=== PATIENT | male | born 1950 | race Caucasian/White ===

== ENCOUNTER 2017-12-21 11:42 | Day surgery (SDC) | payer OTHER ==
[2017-12-21] MEDS ORDERED: NS 1,000 ML IV (12:45)
== END 2017-12-21 13:38 | disposition home or self-care (01) ==
LOC: M OPP 11:42
DX: Z12.11 Encounter for screening for malignant neoplasm of colon (principal); Z86.010 Personal history of colon polyps; K64.0 First degree hemorrhoids; K57.30 Diverticulosis of large intestine without perforation or abscess without bleeding; I10 Essential (primary) hypertension; E78.5 Hyperlipidemia, unspecified; E11.9 Type 2 diabetes mellitus without complications; K57.32 Diverticulitis of large intestine without perforation or abscess without bleeding; J45.909 Unspecified asthma, uncomplicated; J44.9 Chronic obstructive pulmonary disease, unspecified; R06.83 Snoring; Z85.46 Personal history of malignant neoplasm of prostate; Z88.8 Allergy status to other drugs, medicaments and biological substances; Z88.3 Allergy status to other anti-infective agents; Z91.013 Allergy to seafood; Z91.018 Allergy to other foods; Z79.82 Long term (current) use of aspirin; Z79.899 Other long term (current) drug therapy; Z79.84 Long term (current) use of oral hypoglycemic drugs; Z80.51 Family history of malignant neoplasm of kidney; Z87.891 Personal history of nicotine dependence
CPT/HCPCS: G0105

== ENCOUNTER 2018-07-23 10:11 | Emergency (ER) | payer MEDICARE, OTHER ==
[~2018-07-23] VITALS: Ht 152.4 cm; Wt 67.7 kg
[~2018-07-23 10:11] MED LIST: AMLO5TAB6 PO; ASPI1TAB PO; CINN500C9 PO; CRAN400T3 PO; FISH100049 PO; GEMF600T5 PO; LOSA100T50 PO; METF10004 PO; METF500T13 PO; NIAC250C13 PO; POME250C2 PO; TRIA37.53 PO; Triamterene/Hctz; VITA-110 PO; VITA400C7 PO; VITA500T PO; [UNRECOGNIZED DRUG - OTHER]; gemfibrozil
[2018-07-23 11:25] VITALS: BP 145/72
--- NOTE | 2018-07-23 11:54 | REP ---
SOFT TISSUE NECK, THREE VIEWS: HISTORY: Foreign body. The cervical spine is visualized from C1 to C7 in the lateral radiographs. There is no acute fracture or subluxation. The C3-4 through C6-7 intervertebral discs are decreased in height consistent with disc degeneration. Osteophytes are present on C3 through C7. Soft tissues of the neck are unremarkable. IMPRESSION: Degenerative change as described above. There is no radiopaque foreign body. Electronically Signed by Isaiah Bowles MD 07/23/2018 12:00 P
== END 2018-07-23 11:39 | disposition home or self-care (01) ==
LOC: M ED 10:11
DX: R09.89 Other specified symptoms and signs involving the circulatory and respiratory systems (principal); J44.9 Chronic obstructive pulmonary disease, unspecified; J45.909 Unspecified asthma, uncomplicated; I10 Essential (primary) hypertension; E11.9 Type 2 diabetes mellitus without complications; Z79.899 Other long term (current) drug therapy; Z79.84 Long term (current) use of oral hypoglycemic drugs; Z79.82 Long term (current) use of aspirin; Z88.8 Allergy status to other drugs, medicaments and biological substances; Z91.013 Allergy to seafood; Z91.018 Allergy to other foods

== ENCOUNTER 2023-11-23 07:46 | Day surgery (SDC) | payer OTHER ==
[~2023-11-23] VITALS: Ht 152.4 cm; Wt 68.5 kg
[~2023-11-23 07:46] MED LIST changes: +AMLO1TAB24 PO; -AMLO5TAB6 PO; -ASPI1TAB PO; +ASPI81TA26 PO; +CINN500C12 PO; +CRAN450T4 PO; +LOPI600T PO; +LOSA100T46 PO; -LOSA100T50 PO; +OMEG10002 PO; +QUER500C PO; +ROSU10TA61 PO; -TRIA37.53 PO; +TRIA37.577 PO; +VITA-243 PO; +VITA400T26 PO; -VITA500T PO; +ZINC100T3 PO; +[UNRECOGNIZED DRUG - CODE] PO; +propofoL 200 MG/20 ML VIAL As Ordered ONE; +propofoL 500 MG/50 ML VIAL As Ordered ONE
[2023-11-23] MEDS: NS 1,000 ML IV ONE (08:10)
[2023-11-23 09:25] VITALS: TEMP 97.7
[2023-11-23 09:45] VITALS: BP 118/68; O2SAT 95
== END 2023-11-23 09:58 | disposition home or self-care (01) ==
LOC: M OPP 07:46
PROVIDERS: ATTEND Internal Medicine Gastroenterology
DX: Z12.11 Encounter for screening for malignant neoplasm of colon (principal); D12.8 Benign neoplasm of rectum; K64.0 First degree hemorrhoids; K57.30 Diverticulosis of large intestine without perforation or abscess without bleeding; Z86.010 Personal history of colon polyps; I10 Essential (primary) hypertension; E11.9 Type 2 diabetes mellitus without complications; E78.00 Pure hypercholesterolemia, unspecified; J44.9 Chronic obstructive pulmonary disease, unspecified; Z85.46 Personal history of malignant neoplasm of prostate; Z90.49 Acquired absence of other specified parts of digestive tract; Z79.84 Long term (current) use of oral hypoglycemic drugs; Z79.899 Other long term (current) drug therapy; Z88.8 Allergy status to other drugs, medicaments and biological substances; Z91.013 Allergy to seafood; Z91.018 Allergy to other foods

== ENCOUNTER 2025-05-15 06:25 | Emergency (ER) | payer MEDICARE, OTHER ==
[~2025-05-15] VITALS: Ht 152.4 cm; Wt 67.6 kg
[~2025-05-15 06:25] MED LIST changes: -ROSU10TA61 PO; +ROSU10TA90 PO; -propofoL 200 MG/20 ML VIAL As Ordered ONE; -propofoL 500 MG/50 ML VIAL As Ordered ONE
[2025-05-15 06:29] VITALS: TEMP 97
[2025-05-15 07:00] LABS: BASO # 0.1 10^3/uL (0.0-0.2); BASO % 0.7 % (0.0-1.0); EOS # 0.4 10^3/uL (0.0-0.5); EOS % 5.7 % (0.0-3.0); LYMPH # 2.5 10^3/uL (1.5-5.0); LYMPH % 34.4 % (24.0-44.0); MONO # 0.5 10^3/uL (0.0-0.8); MONO % 6.8 % (2.0-8.0); NEUTROPHILS # 3.8 10^3/uL (1.5-8.5); NEUTROPHILS % 51.9 % (36.0-66.0); PLATELET COUNT, AUTOMATED 225 10^3/uL (150-450)
[2025-05-15 07:18] LABS: CK-MB VALUE MASS 3.1 NG/ML (<3.6)
[2025-05-15 07:21] LABS: ALT/SGPT 26 U/L (7.0-40); AST/SGOT 24 U/L (<34); CALCIUM LEVEL 9.5 MG/DL (8.3-10.6); CARBON DIOXIDE LEVEL 28 MMOL/L (20-31); CHLORIDE LEVEL 103 MMOL/L (98-107); CREATININE FOR GFR 0.83 MG/DL (0.70-1.30); GLOMERULAR FILTRATION RATE > 90.0 (>42); POTASSIUM SERUM 4.1 MMOL/L (3.5-5.1); SODIUM LEVEL 141 MMOL/L (136-145)
[2025-05-15 07:25] LABS: CPK CREATINE PHOSPHOKINASE 174 U/L (46-171); MB/CK RELATIVE INDEX 1.78 (< OR =4)
[2025-05-15 07:26] LABS: INR 0.84
[2025-05-15 09:16] LABS: CK-MB VALUE MASS 2.7 NG/ML (<3.6)
[2025-05-15 09:17] LABS: CPK CREATINE PHOSPHOKINASE 162.0 U/L (46-171); MB/CK RELATIVE INDEX 1.66 (< OR =4)
[2025-05-15 10:42] LABS: CK-MB VALUE MASS 2.6 NG/ML (<3.6)
[2025-05-15 10:43] LABS: CPK CREATINE PHOSPHOKINASE 151.0 U/L (46-171); MB/CK RELATIVE INDEX 1.72 (< OR =4)
[2025-05-15 11:00] VITALS: O2SAT 96
[2025-05-15 11:01] VITALS: BP 159/85
== END 2025-05-15 11:20 | disposition home or self-care (01) ==
LOC: M ED 06:25
DX: R07.9 Chest pain, unspecified (principal); E11.9 Type 2 diabetes mellitus without complications; K57.30 Diverticulosis of large intestine without perforation or abscess without bleeding; J45.909 Unspecified asthma, uncomplicated; J44.9 Chronic obstructive pulmonary disease, unspecified; I10 Essential (primary) hypertension; Z79.899 Other long term (current) drug therapy; Z79.4 Long term (current) use of insulin; Z88.8 Allergy status to other drugs, medicaments and biological substances; Z91.013 Allergy to seafood; Z91.018 Allergy to other foods; Z91.041 Radiographic dye allergy status; Z87.891 Personal history of nicotine dependence